=== PATIENT | female | born 1980 | race Two or more races ===

== ENCOUNTER 2022-07-27 17:48 | Emergency (ER) | payer MEDICAID ==
[~2022-07-27] VITALS: Ht 165.1 cm; Wt 62.8 kg
[2022-07-27 17:52] VITALS: BP 155/104
[2022-07-27] MEDS ORDERED: CLIN30GE5 TP (18:15)
[2022-07-27] MEDS ORDERED: DOXY-690 PO (18:15)
--- NOTE | 2022-07-27 18:30 | NUR ---
Patient discharged with v/s stable. Written and verbal after care instructions given and explained. Patient alert, oriented and verbalized understanding of instructions. Ambulatory with steady gait. All questions addressed prior to discharge. ID band removed. Patient advised to follow up with PMD. Rx of CLINDAMYCIN 1%-NIACINAMIDE4%, VIBRAMYCIN given. Patient educated on indication of medication including possible reaction and side effects. Opportunity to ask questions provided and answered.
== END 2022-07-27 18:30 | disposition home or self-care (01) ==
LOC: MED 17:48
DX: L70.0 Acne vulgaris (principal); I10 Essential (primary) hypertension; Z79.899 Other long term (current) drug therapy
CPT/HCPCS: 99283